=== PATIENT | male | born 1935 | race Caucasian/White ===

== ENCOUNTER 2016-12-25 12:08 | Emergency (ER) | payer MEDICARE ==
[~2016-12-25 12:08] MED LIST: Sodium Chloride 0.9% 100 ML BAG ONE
[2016-12-25 13:23] LABS: #Eosinphils 0.2 thou/uL (0.0-0.7); #Lymphocytes 1.2 thou/uL (1.20-3.40); #Monocytes 0.6 thou/uL (0.11-0.59); #Neutrophils 4.1 thou/uL (1.40-6.50); %Basophils 0.6 % (0.0-1.0); %Eosinophils 3.2 % (0.0-10.0); %Lymphocytes 19.8 % (21.0-51.0); %Monocytes 9.6 % (0.0-10.0); %Neutrophils 66.7 % (42.0-75.0); Hemoglobin 12.9 g/dL (14.0-18.0); Mean Corpuscular HGB CONC 33.7 g/dL (32.0-36.0); Mean Corpuscular Volume 85.9 fl (80.0-94.0); Mean Platelet Volume 5.9 fL (7.4-10.4); Platelet Count 358 thou/uL (130-400); RBC Distribution Width 11.4 % (11.5-14.5); Red Blood Cell (RBC) Count 4.45 mill/uL (4.70-6.10); White Blood Cell (WBC) Count 6.2 thou/uL (4.8-10.8)
[2016-12-25 13:36] LABS: Prothrombin Time 13.6 SEC (12.0-14.7)
[2016-12-25 13:37] LABS: PTT 32.9 SEC (22.9-36.1)
[2016-12-25 13:40] LABS: D-Dimer Test Less than 0.27 *mcg/mL (0.27-0.43)
[2016-12-25 13:43] LABS: ALT (SGPT) 60 U/L (0-55); AST (SGOT) 60 U/L (5-34); Albumin 4.1 g/dL (3.4-4.8); Alkaline Phosphatase 92 U/L (40-150); Anion Gap 13 mmol/L (10-20); BUN (Urea Nitrogen) 9 mg/dL (8.4-25.7); Bilirubin, Total 0.5 mg/dL (0.2-1.2); Calc. Creatinine Clearance 0 mL/min (70-130); Calcium 9.7 mg/dL (7.8-10.44); Carbon Dioxide 27 mmol/L (23-31); Chloride 92 mmol/L (98-107); Estimated GFR-MDRD 90; Globulin 2.8 g/dL (2.4-3.5); Glucose 99 mg/dL (83-110); Lipase 15 U/L (8-78); Potassium 4.4 mmol/L (3.5-5.1); Protein, Total 6.9 g/dL (5.8-8.1); Sodium 128 mmol/L (136-145)
[2016-12-25] MEDS ORDERED: Ondansetron HCl/PF 4 MG/2 ML Vial ONE (13:43)
[2016-12-25 13:45] LABS: Troponin I Less than 0.010 ng/mL (< 0.028)
--- NOTE | 2016-12-25 14:01 | RAD ---
CHEST TWO VIEWS: History: Dsypnea. Comparison: 09-27-15 FINDINGS: The cardiac silhouette is unremarkable. Pulmonary vasculature is upper limits of normal. Mediastin um is midline with aortic calcification. Patchy bibasilar parenchymal opacities are present on the current exam. Lungs are otherwise hyperinflated. No lobar consolidation, pneumothorax, or pleural fluid are evident. IMPRESSION: COPD. Mild nonspecific patchy bibasilar parenchymal opacities are nonspecific and could be related to multifocal pneumonitis. Please consider radiographic follow up after medical treatment. POS: [facility]
[2016-12-25 14:04] LABS: Bilirubin Negative (Negative); Blood, Urine Negative (Negative); Clarity Clear (Clear); Glucose, Urine (Dipstick) Negative (Negative); Leukocyte Negative (Negative); Nitrite Negative (Negative); Protein, Urine (Dipstick) Negative (Neg-Trace); Specific Gravity, Urine 1.015 (1.005-1.030); Urobilinogen 0.2 mg/dL (0.2-1.0)
--- NOTE | 2016-12-25 15:15 | CT ---
CT OF ABDOMEN AND PELVIS WITHOUT CONTRAST ENHANCEMENT: History: Right flank pain. FINDINGS: Patchy interstitial alveolar lung changes are seen in the lung bases with some ill-defined areas of nodularity associated with this. Changes would suggest a pneumonic process rather than pulmonary ed joni, although this would be a possibility. The liver, spleen, and pancreas regions are unremarkable. Small focus of increased attenuation with in the gallbladder potentially represents a small stone. Ultrasound would be suggested for assessme nt. Right and left adrenal glands and right and left kidneys are normal in size. There is no evidence o f obstruction. No renal or ureteral calculus is demonstrated. There is no significant periaortic o r mesenteric lymphadenopathy. 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 There is no adenopathy, mass or free fluid. The appendix appears unremarkable. Review of osseous structures show arthritic changes of the spine and hips. Sclerotic focus in the l eft iliac wing is probably a bone island. IMPRESSION: 1. Interstitial alveolar patchy lung changes in both lung bases suggestive a diffuse pneumonic proc ess, less likely pulmonary edema. 2. No signs of renal or ureteral calculi. 3. Possible small gallstone. POS: [facility]
[2016-12-25] MEDS ORDERED: cefTRIAXone\\ROCEPHIN 1 GM VIAL ONE (15:19)
== END 2016-12-25 15:56 | disposition home or self-care (01) ==
LOC: MADERS 12:08
DX: R06.02 Shortness of breath (principal); R05 Cough; I10 Essential (primary) hypertension; K21.9 Gastro-esophageal reflux disease without esophagitis
CPT/HCPCS: 36415; 71020; 74176; 80053; 81003; 82553; 83690; 83880; 84484; 85025; 85379; 85610; 85730; 93005; 96365; 96375; J0696; J2270; J2405; J7050

== ENCOUNTER 2017-01-29 07:00 | Outpatient (CLI) | payer MEDICARE ==
[2017-01-29 08:13] LABS: #Basophils 0.1 thou/uL (0.0-0.2); #Monocytes 0.4 thou/uL (0.11-0.59); #Neutrophils 2.5 thou/uL (1.40-6.50); %Basophils 1.5 % (0.0-1.0); %Eosinophils 0.1 % (0.0-10.0); %Lymphocytes 26.3 % (21.0-51.0); %Monocytes 10.3 % (0.0-10.0); %Neutrophils 61.8 % (42.0-75.0); Hemoglobin 13.4 g/dL (14.0-18.0); Mean Corpuscular HGB CONC 32.5 g/dL (32.0-36.0); Mean Corpuscular Hemoglobin 28.5 pg (27.0-31.0); Mean Corpuscular Volume 87.7 fl (80.0-94.0); Mean Platelet Volume 6.7 fL (7.4-10.4); Platelet Count 227 thou/uL (130-400); RBC Distribution Width 12.6 % (11.5-14.5); Red Blood Cell (RBC) Count 4.72 mill/uL (4.70-6.10)
[2017-01-29 08:28] LABS: ALT (SGPT) 18 U/L (0-55); AST (SGOT) 21 U/L (5-34); Alkaline Phosphatase 53 U/L (40-150); Anion Gap 15 mmol/L (10-20); BUN (Urea Nitrogen) 14 mg/dL (8.4-25.7); Bilirubin, Total 0.5 mg/dL (0.2-1.2); Calc. Creatinine Clearance 0 mL/min (70-130); Calcium 9.3 mg/dL (7.8-10.44); Carbon Dioxide 26 mmol/L (23-31); Cardiac Risk 4.2 (Less than 4.5); Chloride 103 mmol/L (98-107); Cholesterol 212 mg/dL (< 200 Desired); Estimated GFR-MDRD 75; Globulin 2.9 g/dL (2.4-3.5); Glucose 96 mg/dL (83-110); HDL Cholesterol 50 mg/dL (>60 Neg Risk); LDL Cholesterol, Calculated 138 mg/dL; Protein, Total 6.9 g/dL (5.8-8.1); Sodium 140 mmol/L (136-145); Triglycerides 120 mg/dL (Less than 150); Uric Acid 5.3 mg/dL (3.5-7.2)
[2017-01-29 08:44] LABS: Thyroid Stimulating Hormone 1.6835 uIU/mL (0.35-4.94)
[2017-01-29 09:09] LABS: Bilirubin Negative (Negative); Blood, Urine Negative (Negative); Clarity Clear (Clear); Glucose, Urine (Dipstick) Negative (Negative); Leukocyte Negative (Negative); Nitrite Negative (Negative); Protein, Urine (Dipstick) Negative (Neg-Trace); Urobilinogen 0.2 mg/dL (0.2-1.0); pH, Urine 6.5 (5.0-9.0)
[2017-01-29 10:54] LABS: Vitamin D, 25 Hydroxy 28.8 ng/mL (> 30.0)
== END 2017-01-29 07:01 | disposition home or self-care (01) ==
LOC: MADLAB 07:00
PROVIDERS: ATTEND Specialist
DX: Z00.00 Encounter for general adult medical examination without abnormal findings (principal); E55.9 Vitamin D deficiency, unspecified; Z79.899 Other long term (current) drug therapy
CPT/HCPCS: 36415; 80053; 80061; 81003; 82306; 82607; 84443; 84550; 85025

== ENCOUNTER 2017-01-31 07:48 | Outpatient (CLI) | payer MEDICARE ==
[2017-01-31 17:50] LABS: Albumin (w/Testosterone Panel) 4.1 g/dL
[2017-01-31 18:17] LABS: Sex Hormone Binding Globulin 78.3 nmol/L (11-78); Testosterone, Free 19.7 pg/mL (47-244); Testosterone, Total 188.3 ng/dL (221-716)
== END 2017-01-31 07:49 | disposition home or self-care (01) ==
LOC: MADLAB 07:48
PROVIDERS: ATTEND Specialist
DX: E29.1 Testicular hypofunction (principal)
CPT/HCPCS: 36415; 84270; 84403

== ENCOUNTER 2017-06-16 17:37 | Emergency (ER) | payer MEDICARE ==
[2017-06-16] MEDS ORDERED: Neomycin-Polymyxin-Hc 7.5 ML BOT ONE (18:35)
[2017-06-16] MEDS ORDERED: Cephalexin 500 MG CAP ONE (18:35)
== END 2017-06-16 18:45 | disposition home or self-care (01) ==
LOC: MADERS 17:37
DX: H10.9 Unspecified conjunctivitis (principal); H60.93 Unspecified otitis externa, bilateral; I10 Essential (primary) hypertension; K21.9 Gastro-esophageal reflux disease without esophagitis; Z79.899 Other long term (current) drug therapy
CPT/HCPCS: 99283